=== PATIENT | female | born 1975 | race Caucasian/White ===

== ENCOUNTER 2019-06-14 23:49 | Outpatient (CLI) | payer MEDICAID ==
[2019-06-15 00:20] VITALS: BP 119/56
[2019-06-15] MEDS ORDERED: LACTATED RINGERS 500 ML IV ONE (00:20)
[2019-06-15 01:03] LABS: Bacteria,Urine 1+ /HPF (Negative); Bilirubin,Urine NEG (Negative); Blood,Urine NEG (Negative); Color,Urine Straw (Yellow); Mucus,Urine FEW /HPF; Protein,Urine <15 mg/dL mg/dL (Negative); Urobilinogen,Urine < 2.0 mg/dL (<2.0)
[2019-06-15] MEDS ORDERED: VISTARIL PO STA (02:29)
== END 2019-06-15 03:01 | disposition home or self-care (01) ==
LOC: TRG 23:49
PROVIDERS: ATTEND Obstetrics & Gynecology
DX: O62.9 Abnormality of forces of labor, unspecified (principal); O09.213 Supervision of pregnancy with history of pre-term labor, third trimester; O09.523 Supervision of elderly multigravida, third trimester; O99.283 Endocrine, nutritional and metabolic diseases complicating pregnancy, third trimester; E03.9 Hypothyroidism, unspecified; Z3A.29 29 weeks gestation of pregnancy
CPT/HCPCS: 59025; 81001; J7120; 96360; Q0177